=== PATIENT | male | born 1960 | race Caucasian/White ===

== ENCOUNTER 2019-10-19 21:20 | Emergency (ER) | payer SELFPAY ==
[2019-10-19] MEDS ORDERED: Lidocaine 1% w/Epinephrine 1:100K 20 ML VIAL ONE (21:58)
[2019-10-19] MEDS ORDERED: Bacitracin 1 PK ONE (22:39)
--- NOTE | 2019-10-19 23:01 | RAD ---
Exam:3 views left hand HISTORY: Laceration. COMPARISON: None FINDINGS: Limited evaluation of the soft tissues secondary to a plaster splint There is a punctate metallic density projecting over the soft tissues involving the distal aspect of the fourth digit. Additional subtle hyperdensities are noted along the dorsal soft tissues, best demonstrated on the lateral projection. Correlate for foreign bodies in these regions. Acute fractures are not appreciated. IMPRESSION: 1. Radiopaque foreign body projecting over the fourth digit in the dorsum of the hand.
== END 2019-10-19 23:00 | disposition home or self-care (01) ==
LOC: ERS 21:20
DX: S61.412A Laceration without foreign body of left hand, initial encounter (principal); E78.5 Hyperlipidemia, unspecified; I10 Essential (primary) hypertension; W26.8XXA Contact with other sharp object(s), not elsewhere classified, initial encounter
CPT/HCPCS: 12002